=== PATIENT | male | born 1970 | race African-American/Black ===

== ENCOUNTER 2016-10-13 18:13 | Emergency (ER) | payer OTHER ==
[2016-10-13 18:19] VITALS: BP 130/76; PULSE 84; RESP 18; TEMP 97.9
--- NOTE | 2016-10-13 18:48 | ED ---
General Adult HPI - General Chief complaint: GI Bleed Stated complaint: blood in stool Time Seen by Provider: 10/13/16 18:30 Source: patient, RN notes reviewed Mode of arrival: ambulatory Limitations: no limitations - History of Present Illness Initial comments: Patient is a 46-year-old male who presents emergency room today with a chief complaint of rectal bleeding. He does admit that he's had symptoms off and on over the last year. He does admit that today he had a bowel movement and noticed blood in the toilet and also on the toilet paper. Patient states that he had another time felt blood in his underwear. Patient states she's not had any bleeding since. Patient denies any other complaints associated symptoms. Patient denies any recent fever, chills, shortness of breath, chest pain, back pain, abdominal pain, nausea or vomiting, numbness or tingling, dysuria or hematuria, constipation or diarrhea, headaches or visual changes, or any other complaints. - Related Data Previous Rx's Medication Instructions Recorded Docusate [Colace] 100 mg PO DAILY #10 capsule 10/13/16 Hydrocodone/Acetaminophen [Pace 1 each PO Q6HR PRN #15 tab 10/13/16 5-325] Hydrocortisone Pr Cream 1 applic RECTAL TID #1 tube 10/13/16 [Proctosol-Hc 2.5%] Allergies Allergy/AdvReac Type Severity Reaction Status Date / Time No Known Allergies Allergy Verified 10/13/16 18:19 Review of Systems ROS Statement: Those systems with pertinent positive or pertinent negative responses have been documented in the HPI. ROS Other: All systems not noted in ROS Statement are negative. Past Medical History Past Medical History: No Reported History History of Any Multi-Drug Resistant Organisms: None Reported Past Surgical History: No Surgical Hx Reported Past Psychological History: No Psychological Hx Reported Smoking Status: Current every day smoker Past Alcohol Use History: Occasional Past Drug Use History: Marijuana General Exam - General Exam Comments Initial Comments: General: The patient is awake and alert, in no distress, and does not appear acutely ill. Eye: Pupils are equal, round and reactive to light, extra-ocular movements are intact. No nystagmus. There is normal conjunctiva bilaterally. No signs of icterus. Ears, nose, mouth and throat: There are moist mucous membranes and no oral lesions. Neck: The neck is supple, there is no tenderness or JVD. Cardiovascular: There is a regular rate and rhythm. No murmur, rub or gallop is appreciated. Respiratory: Lungs are clear to auscultation, respirations are non-labored, breath sounds are equal. No wheezes, stridor, rales, or rhonchi. Gastrointestinal: Soft, non-distended, non-tender abdomen without masses or organomegaly noted. There is no rebound or guarding present. No CVA tenderness. Bowel sounds are unremarkable. Musculoskeletal: Normal ROM, no tenderness. Strength 5/5. Sensation intact. Pulses equal bilaterally 2+. Neurological: A&O x 3. CN II-XII intact, There are no obvious motor or sensory deficits. Coordination appears grossly intact. Speech is normal. Skin: Skin is warm and dry and no rashes or lesions are noted. Psychiatric: Cooperative, appropriate mood & affect, normal judgment. : Patient does have external hemorrhoid nonbleeding nonthrombosed. It is tender to palpation. Limitations: no limitations Course Vital Signs 10/13/16 18:17 Temperature 97.9 F Pulse Rate 84 Respiratory 18 Rate Blood Pressure 130/76 O2 Sat by Pulse 96 Oximetry Medical Decision Making - Medical Decision Making Was discussed about increasing fiber and fluids in the diet. Advised patient to stool softener to keep looser bowel movements. Will be provided a rectal cream and also pain medication. Advised to follow-up with surgeon. Disposition Clinical Impression: Hemorrhoid Disposition: HOME SELF-CARE Condition: Good Instructions: Hemorrhoids (ED) Additional Instructions: Please use medication as discussed. Please follow-up with surgeon/family doctor in the next 2 days. Please return to emergency room if the symptoms increase or worsen or for any other concerns. Prescriptions: Docusate [Colace] 100 mg PO DAILY #10 capsule Hydrocodone/Acetaminophen [Pace 5-325] 1 each PO Q6HR PRN #15 tab PRN Reason: Pain Hydrocortisone Pr Cream [Proctosol-Hc 2.5%] 1 applic RECTAL TID #1 tube Referrals: None,Stated [Primary Care Provider] - 1-2 days Yordan Beckwith MD [STAFF PHYSICIAN] - 1-2 days Time of Disposition: 18:45
== END 2016-10-13 18:59 | disposition home or self-care (01) ==
LOC: EC 18:13
DX: K64.4 Residual hemorrhoidal skin tags (principal); F17.200 Nicotine dependence, unspecified, uncomplicated
CPT/HCPCS: 99284

== ENCOUNTER 2017-01-07 07:25 | Emergency (ER) | payer OTHER ==
[2017-01-07 07:33] VITALS: BP 148/95; PULSE 77; RESP 18; TEMP 97.8
[2017-01-07] MEDS ORDERED: ORPHENADRINE 30 MG/ML 2 ML VIAL IM STA (08:04)
[2017-01-07] MEDS ORDERED: KETOROLAC 60 MG/2 ML VIAL IM STA (08:04)
--- NOTE | 2017-01-07 08:15 | ED ---
General Adult HPI - General Chief complaint: Back Pain/Injury Stated complaint: back pain injury, cold symptoms Time Seen by Provider: 01/07/17 08:01 Source: patient, RN notes reviewed Mode of arrival: ambulatory Limitations: no limitations - History of Present Illness Initial comments: 46-year-old male presents to the emergency department with a chief complaint of low back pain. Patient also complains of a mild cough as well. Patient states his back pain started recent states started new partner at work. Patient states his pain and now his pain is much larger objects and he was doing a lot of bending up and down. Patient states some both sides of his lower back. Patient usually numbness and tingling. Certain movements will make the pain worse. Patient states he has had back pain for but has not flared up for a while. Patient states she's also had mild cough. Patient does admit to smoking. Patient states he does have some phlegm production with the cough. Patient was concerned due to his back pain in the cost without that he should be seen. Patient states pain is moderate worse to movement. Patient denies any recent fever, chills, shortness of breath, chest pain, abdominal pain, nausea vomiting, numbness or tingling, dysuria or hematuria, constipation or diarrhea, headaches or visual changes, or any other current symptoms. - Related Data Previous Rx's Medication Instructions Recorded Docusate [Colace] 100 mg PO DAILY #10 capsule 10/13/16 Naproxen [Naprosyn] 500 mg PO Q12HR #20 tab 01/07/17 Orphenadrine [Norflex] 100 mg PO Q12H #10 tablet.er 01/07/17 predniSONE 50 mg PO DAILY #5 tab 01/07/17 Allergies Allergy/AdvReac Type Severity Reaction Status Date / Time No Known Allergies Allergy Verified 01/07/17 08:19 Review of Systems ROS Statement: Those systems with pertinent positive or pertinent negative responses have been documented in the HPI. ROS Other: All systems not noted in ROS Statement are negative. Past Medical History Past Medical History: No Reported History History of Any Multi-Drug Resistant Organisms: None Reported Past Surgical History: No Surgical Hx Reported Past Psychological History: Depression Smoking Status: Current every day smoker Past Alcohol Use History: Occasional Past Drug Use History: Marijuana General Exam Limitations: no limitations General appearance: alert, in no apparent distress Eye exam: Present: normal appearance, PERRL, EOMI. Absent: scleral icterus, conjunctival injection, periorbital swelling ENT exam: Present: normal exam, mucous membranes moist Neck exam: Present: normal inspection. Absent: tenderness, meningismus, lymphadenopathy Respiratory exam: Present: normal lung sounds bilaterally. Absent: respiratory distress, wheezes, rales, rhonchi, stridor Cardiovascular Exam: Present: regular rate, normal rhythm, normal heart sounds. Absent: systolic murmur, diastolic murmur, rubs, gallop, clicks Back exam: Present: normal inspection, full ROM, muscle spasm (Paraspinal). Absent: tenderness, vertebral tenderness, rash noted Neurological exam: Present: alert, oriented X3 Psychiatric exam: Present: normal affect, normal mood Skin exam: Present: warm, dry, intact, normal color. Absent: rash Course Vital Signs 01/07/17 07:29 Temperature 97.8 F Pulse Rate 77 Respiratory 18 Rate Blood Pressure 148/95 O2 Sat by Pulse 98 Oximetry Medical Decision Making - Medical Decision Making 38-year-old male presents emergency Department chief complaint of cough cold along the back pain. This time patient's x-rays are reviewed. We'll start patient on muscle relaxers steroids and anti-inflammatories for home. We discussed follow-up return parameters outpatient family's questions. They stated the Juanito they're in agreement this plan. All questions answered. They will be discharged. - Radiology Data Radiology results: report reviewed, image reviewed Disposition Clinical Impression: Strain of lumbar region, Upper respiratory infection Disposition: HOME SELF-CARE Condition: Stable Instructions: Upper Respiratory Infection (ED), Low Back Strain (ED), Lower Back Exercises (ED) Additional Instructions: Please use medication as discussed. Please follow up with family doctor if symptoms have not improved over the next two days. Please return to the emergency room if your symptoms increase or worsen or for any other concerns. Prescriptions: Naproxen [Naprosyn] 500 mg PO Q12HR #20 tab Orphenadrine [Norflex] 100 mg PO Q12H #10 tablet.er predniSONE 50 mg PO DAILY #5 tab Referrals: Jf Cantu MD [STAFF PHYSICIAN] - 1-2 days Time of Disposition: 08:27
--- NOTE | 2017-01-07 08:25 | XR ---
EXAMINATION TYPE: XR lumbar spine 2 or 3V DATE OF EXAM: 01/07/2017 CLINICAL HISTORY: Low back pain for 3 days TECHNIQUE: Frontal and lateral images of the lumbar spine are obtained. COMPARISON: None FINDINGS: There are 5 lumbar type vertebral bodies identified. The lumbar spine shows satisfactory alignment without evidence of acute fracture or dislocation. Vertebral body heights and disk space he ights are within normal limits. Minimal degenerative changes of the lumbar spine are seen.. The over lying soft tissue appears unremarkable. IMPRESSION: No acute fracture or dislocation is seen in the lumbar spine.
--- NOTE | 2017-01-07 08:25 | XR ---
EXAMINATION TYPE: XR chest 2V DATE OF EXAM: 01/07/2017 COMPARISON: NONE HISTORY: Cough for 3 days TECHNIQUE: Frontal and lateral views of the chest are obtained. FINDINGS: There is no focal air space opacity, pleural effusion, or pneumothorax seen. Pulmonary hyp erinflation likely relates to degree of inspiration rather than underlying COPD. Minimal biapical ple ural thickening is noted. The cardiac silhouette size is within normal limits. The osseous structur es are intact. IMPRESSION: No acute cardiopulmonary process.
== END 2017-01-07 08:40 | disposition home or self-care (01) ==
LOC: EC 07:25
DX: S39.012A Strain of muscle, fascia and tendon of lower back, initial encounter (principal); J06.9 Acute upper respiratory infection, unspecified; F17.200 Nicotine dependence, unspecified, uncomplicated; X50.1XXA Overexertion from prolonged static or awkward postures, initial encounter; Y93.89 Activity, other specified
CPT/HCPCS: 71020; 72100; 99283; 96372 ×2; J2360; J1885

== ENCOUNTER 2017-01-25 00:24 | Emergency (ER) | payer OTHER ==
[2017-01-25 00:31] VITALS: BP 135/91; PULSE 79; RESP 16; TEMP 97.4
[2017-01-25] MEDS ORDERED: ORPHENADRINE 30 MG/ML 2 ML VIAL IM STA (01:01)
[2017-01-25] MEDS ORDERED: KETOROLAC 60 MG/2 ML VIAL IM STA (01:01)
--- NOTE | 2017-01-25 01:16 | ED ---
Back Pain HPI - General Chief Complaint: Back Pain/Injury Stated Complaint: back pain Time Seen by Provider: 01/25/17 00:43 Source: patient, RN notes reviewed, old records reviewed Limitations: no limitations - History of Present Illness Initial Comments: Patient is a 46 year old male with CC of lower back pain. He was seen 3 weeks ago for similar complaints. Patient had no falls or trauma. Paitent has had no saddle anesthesias or any other symptoms. Patient reports that he has no hematuria, or changes in bowel habits. Patient reports that it is worse with certain movements. Patient states that he was discharged with muscle relaxer adn pain medication, and reports that last time he was here he felt better after injections. Patient states that he has not followed up with a PCP. - Related Data Previous Rx's Medication Instructions Recorded Docusate [Colace] 100 mg PO DAILY #10 capsule 10/13/16 Naproxen [Naprosyn] 500 mg PO Q12HR #20 tab 01/07/17 Orphenadrine [Norflex] 100 mg PO Q12H #10 tablet.er 01/07/17 predniSONE 50 mg PO DAILY #5 tab 01/07/17 Cyclobenzaprine [Flexeril] 10 mg PO TID #15 tab 01/25/17 Ibuprofen [Motrin] 600 mg PO Q8HR PRN #20 tab 01/25/17 Allergies Allergy/AdvReac Type Severity Reaction Status Date / Time No Known Allergies Allergy Verified 01/25/17 00:31 Review of Systems ROS Statement: Those systems with pertinent positive or pertinent negative responses have been documented in the HPI. ROS Other: All systems not noted in ROS Statement are negative. Past Medical History Past Medical History: No Reported History History of Any Multi-Drug Resistant Organisms: None Reported Past Surgical History: No Surgical Hx Reported Past Psychological History: Depression Smoking Status: Current every day smoker Past Alcohol Use History: Occasional Past Drug Use History: Marijuana General Exam - General Exam Comments Initial Comments: This is a 46 year old male, no distress. Limitations: no limitations General appearance: alert, in no apparent distress Head exam: Present: atraumatic, normocephalic, normal inspection Eye exam: Present: normal appearance, PERRL, EOMI. Absent: scleral icterus, conjunctival injection, periorbital swelling ENT exam: Present: normal exam, mucous membranes moist Neck exam: Present: normal inspection. Absent: tenderness, meningismus, lymphadenopathy Respiratory exam: Present: normal lung sounds bilaterally. Absent: respiratory distress, wheezes, rales, rhonchi, stridor Cardiovascular Exam: Present: regular rate, normal rhythm, normal heart sounds. Absent: systolic murmur, diastolic murmur, rubs, gallop, clicks GI/Abdominal exam: Present: soft, normal bowel sounds. Absent: distended, tenderness, guarding, rebound, rigid Extremities exam: Present: normal inspection, full ROM, normal capillary refill. Absent: tenderness, pedal edema, joint swelling, calf tenderness Back exam: Present: normal inspection, paraspinal tenderness (lumbar right sided paraspinal tenderness) Neurological exam: Present: alert, oriented X3, CN II-XII intact Psychiatric exam: Present: normal affect, normal mood Skin exam: Present: warm, dry, intact, normal color. Absent: rash Course Vital Signs 01/25/17 00:26 Temperature 97.4 F L Pulse Rate 79 Respiratory 16 Rate Blood Pressure 135/91 O2 Sat by Pulse 99 Oximetry Medical Decision Making - Medical Decision Making Patient is a 46 year old male with right sided lower back pain, no acute distress. Patient pain is worse with certain movements, he has no saddle anesthesias. Discussed that without any falls or trauma, there would be no concern for major changes. I reviewed patient previous images, and there is no significant abnormalities noted. Patient given IM toradol and norflex, and report that he is feeling much better. Patient will be discharged with motrin and flexeril, discussed close follow up with PCP and return parameters discussed. Disposition Clinical Impression: Lumbar back sprain Disposition: HOME SELF-CARE Condition: Good Instructions: Acute Low Back Pain (ED) Additional Instructions: Patient is to take anti-inflammatory, and muscle relaxer her medication as prescribed. Follow-up with primary care provider. Return to emergency department if any alarming signs occur. Prescriptions: Cyclobenzaprine [Flexeril] 10 mg PO TID #15 tab Ibuprofen [Motrin] 600 mg PO Q8HR PRN #20 tab PRN Reason: Pain Referrals: None,Stated [Primary Care Provider] - 1-2 days Radha Munguia MD [STAFF PHYSICIAN] - 1-2 days Time of Disposition: 01:14
== END 2017-01-25 01:32 | disposition home or self-care (01) ==
LOC: EC 00:24
DX: S33.5XXA Sprain of ligaments of lumbar spine, initial encounter (principal); F17.200 Nicotine dependence, unspecified, uncomplicated
CPT/HCPCS: 99283; 96372 ×2; J2360; J1885

== ENCOUNTER 2017-05-20 09:20 | Emergency (ER) | payer OTHER ==
[2017-05-20 09:24] VITALS: BP 128/71; PULSE 78; RESP 18; TEMP 98.6
[2017-05-20] MEDS ORDERED: ceFAZolin 1,000 MG VIAL IM STA (09:34)
[2017-05-20] MEDS ORDERED: DIPH,PERTUS(ACELL)TETVAC-LF 0.5 ML VIAL IM ONE (09:34)
--- NOTE | 2017-05-20 09:49 | ED ---
General Adult HPI - General Chief complaint: Animal Bite Stated complaint: dog bite Time Seen by Provider: 05/20/17 09:28 Source: patient, RN notes reviewed Mode of arrival: ambulatory Limitations: no limitations - History of Present Illness Initial comments: 46-year-old male presents to the emergency department with a chief complaint of dog bite. Patient states that he was breaking up his dog From fighting and he ended up biting his right hand. Patient states she also has a scratch the right side of his head. States he is able to move the hand. He states he does not recall his last tetanus but the dogs are up-to-date on vaccinations. He was concerned due to the bleeding and the cut so he thought that he should be seen. Patient denies any other symptoms at this time. Pain is moderate worse to movement. Patient denies any recent fever, chills, shortness of breath, chest pain, back pain, abdominal pain, nausea vomiting, numbness or tingling, dysuria or hematuria, constipation or diarrhea, headaches or visual changes, or any other current symptoms. - Related Data Previous Rx's Medication Instructions Recorded Amoxicillin/Potassium Clav 1 tab PO Q12HR #20 tab 05/20/17 [Augmentin 875-125 Tablet] Allergies Allergy/AdvReac Type Severity Reaction Status Date / Time No Known Allergies Allergy Verified 05/20/17 10:01 Review of Systems ROS Statement: Those systems with pertinent positive or pertinent negative responses have been documented in the HPI. ROS Other: All systems not noted in ROS Statement are negative. Past Medical History Past Medical History: No Reported History History of Any Multi-Drug Resistant Organisms: None Reported Past Surgical History: No Surgical Hx Reported Past Psychological History: Depression Smoking Status: Current every day smoker Past Alcohol Use History: Occasional Past Drug Use History: Marijuana General Exam - General Exam Comments Initial Comments: General: The patient is awake and alert, in no distress, and does not appear acutely ill. Neck: The neck is supple, there is no tenderness. Cardiovascular: There is a regular rate and rhythm. No murmur, rub or gallop is appreciated. Respiratory: Lungs are clear to auscultation, respirations are non-labored, breath sounds are equal. No wheezes, stridor, rales, or rhonchi. Musculoskeletal: Sensation intact with 2+ pulses throughout the right upper extremity. Full range of motion of right wrist. Patient does appear to have a recent laceration to the palm of the right hand. Good strength throughout the entire right hand. With full range of motion. Less than 2 capillary refill. Range of motion of right wrist. Puncture wounds noted to the back of the right hand. Neurological: CN II-XII intact, There are no obvious motor or sensory deficits. Coordination appears grossly intact. Speech is normal. Skin: Skin is warm and dry and no rashes or lesions are noted. Psychiatric: Normal mood and affect. Limitations: no limitations Course Vital Signs 05/20/17 09:21 Temperature 98.6 F Pulse Rate 78 Respiratory 18 Rate Blood Pressure 128/71 O2 Sat by Pulse 98 Oximetry Procedures - Procedures Initial comment: The skin was anesthetized with 1% lidocaine. The laceration was then cleansed with Betadine and irrigated with normal saline. The wound was inspected, and there was no evidence of injury to deep structures. No foreign body was noted in the wound. A total of 2 skin sutures were placed utilizing 5-0 nylon to a 4 cm right hand laceration Medical Decision Making - Medical Decision Making 46-year-old male presents for dog bite to the right hand and scratched the right side of the head. This time we did update his tetanus. on Augmentin for home. Due to the length of the laceration of the hand we discussed that we can loosely close the area. We did discuss this is increased risk of infection we did discuss x-ray showing possible foreign body. We did discuss he needs follow -up with hand surgery for this.. We discussed the outcomes of possible infection development to the right hand. We did discuss risk-benefit. Patient states that he would like some suture closure. At this time we did discuss follow-up we discussed return parameters all questions. Patient has good range of motion good strength no deep injury is noted on exam. At this time patient will be discharged home. Patient is in agreement this plan. - Radiology Data Radiology results: report reviewed, image reviewed Disposition Clinical Impression: Dog bite, Puncture wound of right hand, Laceration of right hand, Scalp abrasion, Laceration of right hand with foreign body Disposition: HOME SELF-CARE Condition: Stable Instructions: Animal Bite (ED) Additional Instructions: Please use medication as discussed. Please follow up with family doctor if symptoms have not improved over the next two days. Please return to the emergency room if your symptoms increase or worsen or for any other concerns. Prescriptions: Amoxicillin/Potassium Clav [Augmentin 875-125 Tablet] 1 tab PO Q12HR #20 tab Referrals: Joel Poon DO [Doctor of Osteopathic Medicine] - 1-2 days Time of Disposition: 10:18
--- NOTE | 2017-05-20 09:56 | XR ---
EXAMINATION TYPE: XR hand complete RT DATE OF EXAM: 05/20/2017 CLINICAL HISTORY: Laceration injury with pain. TECHNIQUE: Frontal, lateral and oblique images of the right hand are obtained. COMPARISON: None. FINDINGS: There is no acute fracture/dislocation evident in the right hand. The joint spaces in the right hand appear within normal limits. On frontal and oblique images there is linear density at base of first metacarpal, cannot exclude for eign body at this level. There are foci of air between second and third metacarpal on frontal view li zayra reflecting site of laceration injury. IMPRESSION: There is no acute fracture or dislocation in the right hand. Other findings as noted abo ve.
== END 2017-05-20 10:24 | disposition home or self-care (01) ==
LOC: EC 09:20
DX: S61.451A Open bite of right hand, initial encounter (principal); S61.421A Laceration with foreign body of right hand, initial encounter; S00.01XA Abrasion of scalp, initial encounter; F17.200 Nicotine dependence, unspecified, uncomplicated; Z23 Encounter for immunization; W54.0XXA Bitten by dog, initial encounter
CPT/HCPCS: 73130; 90715; 99283; 12002; 90471; J0690